=== PATIENT | male | born 1965 | race African-American/Black ===

== ENCOUNTER 2019-03-05 12:19 | Emergency (ER) | payer SELFPAY ==
--- NOTE | 2019-03-05 13:07 | ER Document Report ---
ED Medical Screen (RME) - General Chief Complaint: High Blood Pressure Stated Complaint: BLOOD PRESSURE ISSUES Time Seen by Provider: 03/05/19 12:55 Primary Care Provider: NATHAN THAKKAR MD [Primary Care Provider] - Follow up as needed Mode of Arrival: Ambulatory Information source: Patient Notes: 53-year-old male presented to ED for complaint of very high blood pressure. He states he has a history of high blood pressure but is not taking any medications for at least 2 years because he has not had insurance. He states the insurance and work got too expensive for him to afford. He states the last medication he knows that he took with lisinopril 20 mg daily and that was in 2015. TRAVEL OUTSIDE OF THE [place] IN LAST 30 DAYS: No - Related Data Allergies/Adverse Reactions: No Known Allergies Allergy (Verified 03/05/19 12:20) Past Medical History - Social History Chew tobacco use (# tins/day): No Frequency of alcohol use: None Drug Abuse: None - Past Medical History Cardiac Medical History: Reports: Hx Hypertension Renal/ Medical History: Denies: Hx Peritoneal Dialysis Physical Exam - Vital signs Vitals: Temp Pulse Resp BP Pulse Ox 98.8 F 91 18 185/124 H 98 03/05/19 12:21 03/05/19 12:21 03/05/19 12:21 03/05/19 12:21 03/05/19 12:21 Course - Vital Signs Vital signs: Temp Pulse Resp BP Pulse Ox 98.8 F 91 18 185/124 H 98 03/05/19 12:21 03/05/19 12:21 03/05/19 12:21 03/05/19 12:21 03/05/19 12:21 Doctor's Discharge - Discharge Referrals: NATHAN THAKKAR MD [Primary Care Provider] - Follow up as needed
[2019-03-05 13:31] LABS: ABSOLUTE EOSINOPHILS # (AUTO) 0.1 10^3/uL (0.0-0.6); ABSOLUTE LYMPHOCYTES (AUTO) 1.5 10^3/uL (0.5-4.7); ABSOLUTE MONOCYTES (AUTO) 0.8 10^3/uL (0.1-1.4); ABSOLUTE NEUT (AUTO) 7.2 10^3/uL (1.7-8.2); BASOPHILS % (AUTO) 0.3 % (0-2); EOSINOPHILS % (AUTO) 0.7 % (0-6); HEMATOCRIT 49.9 % (37.9-51.0); HEMOGLOBIN 16.3 g/dL (13.5-17.0); LYMPHOCYTES % (AUTO) 15.6 % (13-45); MEAN CORPUSCULAR HEMOGLOBIN 26.2 pg (27.0-33.4); MEAN CORPUSCULAR HGB CONC 32.6 g/dL (32.0-36.0); MEAN CORPUSCULAR VOLUME 80 fl (80-97); MONOCYTES % (AUTO) 8.4 % (3-13); PLATELET COUNT 258 10^3/uL (150-450); RED BLOOD COUNT 6.21 10^6/uL (4.35-5.55); RED CELL DISTRIBUTION WIDTH 14.3 % (11.5-14.0); TOTAL CELLS COUNTED % (AUTO) 100 %; WHITE BLOOD COUNT 9.6 10^3/uL (4.0-10.5)
[2019-03-05 13:48] LABS: APPEARANCE,URINE CLEAR; BILIRUBIN,URINE NEGATIVE (NEGATIVE); COLOR,URINE YELLOW; GLUCOSE, URINE NEGATIVE (NEGATIVE); KETONES,URINE NEGATIVE (NEGATIVE); LEUKOCYTE ESTERASE,URINE NEGATIVE (NEGATIVE); NITRITE,URINE NEGATIVE (NEGATIVE); PROTEIN,URINE NEGATIVE (NEGATIVE); URINE SPECIFIC GRAVITY 1.013; UROBILINOGEN,URINE NEGATIVE mg/dL (<2.0)
[2019-03-05 13:57] LABS: ALANINE AMINOTRANSFERASE 35 U/L (21-72); ALBUMIN 4.9 g/dL (3.5-5.0); ALKALINE PHOSPHATASE 93 U/L (38-126); ANION GAP 13 (5-19); ASPARTATE AMINO TRANSFERASE 28 U/L (17-59); BILIRUBIN,DIRECT 0.2 mg/dL (0.0-0.4); BILIRUBIN,TOTAL 0.5 mg/dL (0.2-1.3); BLOOD UREA NITROGEN 16 mg/dL (7-20); CALCIUM 10.3 mg/dL (8.4-10.2); CARBON DIOXIDE 32 mmol/L (22-30); CHLORIDE 97 mmol/L (98-107); GLUCOSE 95 mg/dL (75-110); POTASSIUM 3.8 mmol/L (3.6-5.0); SODIUM 141.7 mmol/L (137-145); TOTAL PROTEIN 7.9 g/dL (6.3-8.2)
[2019-03-05] MEDS ORDERED: AMLODIPINE BESYLATE 5 MG TABLET PO ONE (14:39)
--- NOTE | 2019-03-05 15:05 | RADIOLOGY REPORT (SQ) ---
EXAM DESCRIPTION: CT HEAD WITHOUT COMPLETED DATE/TIME: 03/05/2019 2:48 pm REASON FOR STUDY: HTN, headache COMPARISON: None. TECHNIQUE: Axial images acquired through the brain without intravenous contrast. Images reviewed wi th bone, brain and subdural windows. Additional sagittal and coronal reconstructions were generated. Images stored on PACS. All CT scanners at this facility use dose modulation, iterative reconstruction, and/or weight based d osing when appropriate to reduce radiation dose to as low as reasonably achievable (ALARA). [facility]: Dose Right [facility]: CareDose [facility]: Dose Right [facility]: Teradose 4D [facility]: Up My Game RADIATION DOSE: CT Rad equipment meets quality standard of care and radiation dose reduction techniq ues were employed. CTDIvol: 53.2 mGy. DLP: 1017 mGy-cm. mGy. LIMITATIONS: None. FINDINGS: VENTRICLES: Normal size and contour. CEREBRUM: No masses. No hemorrhage. No midline shift. No evidence for acute infarction. Normal gra y/white matter differentiation. No areas of low density in the white matter. CEREBELLUM: No masses. No hemorrhage. No alteration of density. No evidence for acute infarction. EXTRAAXIAL SPACES: No fluid collections. No masses. ORBITS AND GLOBE: No intra- or extraconal masses. Normal contour of globe without masses. CALVARIUM: No fracture. PARANASAL SINUSES: No fluid or mucosal thickening. SOFT TISSUES: No mass or hematoma. OTHER: No other significant finding. IMPRESSION: NORMAL BRAIN CT WITHOUT CONTRAST. EVIDENCE OF ACUTE STROKE: NO. COMMENT: Quality ID # [id number]: Final reports with documentation of one or more dose reduction techniques (e.g., Automated exposure control, adjustment of the mA and/or kV according to patient size, use of iterative reconstruction technique) TECHNICAL DOCUMENTATION: JOB ID: [id number] [employer]- All Rights Reserved Reading location - IP/workstation name: [email or web address]
--- NOTE | 2019-03-05 15:10 | ER Document Report ---
ED Blood Pressure Problem - General Chief Complaint: High Blood Pressure Stated Complaint: BLOOD PRESSURE ISSUES Time Seen by Provider: 03/05/19 12:55 Primary Care Provider: NATHAN THAKKAR MD [NO LOCAL MD] - Follow up as needed Mode of Arrival: Ambulatory Notes: Patient is a 53-year-old -[place] male who presents to the emergency department for hypertension. Patient states for the last couple of days he has had a pressure in his head. Also complaining of a generalized headache. Patient states he did have hypertension in the past and was on lisinopril. States he has not been able to take it since 2016 due to him currently being uninsured. Patient's denying any chest pain, shortness of breath, weakness, blurred vision, vomiting, fevers. Patient stated he took his blood pressure at home and it was 200 systolic which concerned him which is why presents to the emergency department. Past medical history: Hypertension Medications: Currently none Allergies none Surgical history none TRAVEL OUTSIDE OF THE [place] IN LAST 30 DAYS: No - Related Data Allergies/Adverse Reactions: No Known Allergies Allergy (Verified 03/05/19 12:20) Past Medical History - General Information source: Patient - Social History Smoking Status: Former Smoker Chew tobacco use (# tins/day): No Frequency of alcohol use: None Drug Abuse: None Family History: Reviewed & Not Pertinent Patient has suicidal ideation: No Patient has homicidal ideation: No - Past Medical History Cardiac Medical History: Reports: Hx Hypertension Renal/ Medical History: Denies: Hx Peritoneal Dialysis Review of Systems - Review of Systems Constitutional: See HPI. denies: Weakness EENT: See HPI Cardiovascular: See HPI Respiratory: No symptoms reported Gastrointestinal: No symptoms reported Genitourinary: No symptoms reported Male Genitourinary: No symptoms reported Musculoskeletal: No symptoms reported Skin: No symptoms reported Hematologic/Lymphatic: No symptoms reported Neurological/Psychological: See HPI Physical Exam - Vital signs Vitals: Temp Pulse Resp BP Pulse Ox 98.8 F 91 18 185/124 H 98 03/05/19 12:21 03/05/19 12:21 03/05/19 12:21 03/05/19 12:21 03/05/19 12:21 - Notes Notes: GENERAL: Alert, interacts well. No acute distress. HEAD: Normocephalic, atraumatic. EYES: Pupils equal, round, and reactive to light. Extraocular movements intact. ENT: Oral mucosa moist, tongue midline. NECK: Full range of motion. Supple. Trachea midline. No nuchal rigidity noted LUNGS: Clear to auscultation bilaterally, no wheezes, rales, or rhonchi. No respiratory distress. HEART: Regular rate and rhythm. No murmur ABDOMEN: Soft, non-tender. Non-distended. Bowel sounds present in all 4 quadrants. EXTREMITIES: Moves all 4 extremities spontaneously. No edema, normal radial and dorsalis pedis pulses bilaterally. No cyanosis. 5 out of 5 strength all 4 extremities. BACK: no cervical, thoracic, lumbar midline tenderness. No saddle anesthesia, normal distal neurovascular exam. NEUROLOGICAL: Alert and oriented x3. Normal speech. cranial nerves II through XII grossly intact PSYCH: Normal affect, normal mood. SKIN: Warm, dry, normal turgor. No rashes or lesions noted. Course - Re-evaluation Re-evalutation: EKG shows a sinus rhythm rate of 77, first-degree AV block. QTc 453, no ST segment elevations or depressions noted. 03/05/19 15:43 Laboratory 03/05/19 03/05/19 03/05/19 13:17 13:17 13:17 WBC 9.6 RBC 6.21 H Hgb 16.3 Hct 49.9 MCV 80 MCH 26.2 L MCHC 32.6 RDW 14.3 H Plt Count 258 Seg Neutrophils % 75.0 Lymphocytes % 15.6 Monocytes % 8.4 Eosinophils % 0.7 Basophils % 0.3 Absolute Neutrophils 7.2 Absolute Lymphocytes 1.5 Absolute Monocytes 0.8 Absolute Eosinophils 0.1 Absolute Basophils 0.0 Sodium 141.7 Potassium 3.8 Chloride 97 L Carbon Dioxide 32 H Anion Gap 13 BUN 16 Creatinine 1.25 Est GFR ( Amer) > 60 Est GFR (Non-Af Amer) > 60 Glucose 95 Calcium 10.3 H Total Bilirubin 0.5 Direct Bilirubin 0.2 Neonat Total Bilirubin Not Reportable Neonat Direct Bilirubin Not Reportable Neonat Indirect Bili Not Reportable AST 28 ALT 35 Alkaline Phosphatase 93 CK-MB (CK-2) 1.66 Troponin I Total Protein 7.9 Albumin 4.9 Urine Color Urine Appearance Urine pH Ur Specific Makanda Urine Protein Urine Glucose (UA) Urine Ketones Urine Blood Urine Nitrite Urine Bilirubin Urine Urobilinogen Ur Leukocyte Esterase Urine WBC (Auto) Urine RBC (Auto) Urine Mucus (Auto) Urine Ascorbic Acid 03/05/19 03/05/19 13:17 13:17 WBC RBC Hgb Hct MCV MCH MCHC RDW Plt Count Seg Neutrophils % Lymphocytes % Monocytes % Eosinophils % Basophils % Absolute Neutrophils Absolute Lymphocytes Absolute Monocytes Absolute Eosinophils Absolute Basophils Sodium Potassium Chloride Carbon Dioxide Anion Gap BUN Creatinine Est GFR ( Amer) Est GFR (Non-Af Amer) Glucose Calcium Total Bilirubin Direct Bilirubin Neonat Total Bilirubin Neonat Direct Bilirubin Neonat Indirect Bili AST ALT Alkaline Phosphatase CK-MB (CK-2) Troponin I 0.024 Total Protein Albumin Urine Color YELLOW Urine Appearance CLEAR Urine pH 6.0 Ur Specific Makanda 1.013 Urine Protein NEGATIVE Urine Glucose (UA) NEGATIVE Urine Ketones NEGATIVE Urine Blood SMALL H Urine Nitrite NEGATIVE Urine Bilirubin NEGATIVE Urine Urobilinogen NEGATIVE Ur Leukocyte Esterase NEGATIVE Urine WBC (Auto) 1 Urine RBC (Auto) 3 Urine Mucus (Auto) OCC Urine Ascorbic Acid NEGATIVE Head CT 03/05/19 13:40 IMPRESSION: NORMAL BRAIN CT WITHOUT CONTRAST. EVIDENCE OF ACUTE STROKE: NO. Discussed with patient use of amlodipine due to JNC 8 criteria. Patient voices understanding. States he will follow-up with [facility] or [facility] for medication refill. Discussed close return precautions. Patient stable for discharge. - Vital Signs Vital signs: Temp Pulse Resp BP Pulse Ox 98.8 F 91 18 186/106 H 98 03/05/19 12:21 03/05/19 12:21 03/05/19 12:21 03/05/19 12:59 03/05/19 12:21 - Laboratory Result Diagrams: 03/05/19 13:17 03/05/19 13:17 Laboratory results interpreted by me: 03/05/19 03/05/19 03/05/19 13:17 13:17 13:17 RBC 6.21 H MCH 26.2 L RDW 14.3 H Chloride 97 L Carbon Dioxide 32 H Calcium 10.3 H Urine Blood SMALL H Discharge - Discharge Clinical Impression: Hypertension Qualifiers: Hypertension type: unspecified Qualified Code(s): I10 - Essential (primary) hypertension Condition: Stable Disposition: HOME, SELF-CARE Instructions: Calcium Channel Blockers ([facility]), High Blood Pressure ([facility]) Additional Instructions: As we discussed you have been seen and treated in the emergency department for high blood pressure. All of your testing is coming back within normal limits. Her blood pressure is noted to be elevated at today's visit. As we discussed I am going to start you on a medication called Norvasc. Please make sure you take it daily for the next 30 days. Please also make sure they follow-up with [facility] or [facility] for continued care. You can also follow-up with the clinic you have heard of in [place] as needed. Please make sure you immediately return to the emergency room should you develop any chest pain, dizziness, blurred vision, vomiting, any other concerns. Prescriptions: Amlodipine Besylate [Norvasc 10 mg Tablet] 10 mg PO DAILY #30 tablet Forms: Elevated Blood Pressure, Return to Work Referrals: NAHTAN THAKKAR MD [NO LOCAL MD] - Follow up as needed
[2019-03-05 16:00] VITALS: BP 170/116
--- NOTE | 2019-03-05 18:39 | EKG REPORT ---
SEVERITY:- ABNORMAL ECG - SINUS RHYTHM FIRST DEGREE AV BLOCK LEFT ATRIAL ABNORMALITY PROBABLE LEFT VENTRICULAR HYPERTROPHY ANTERIOR Q WAVES, POSSIBLY DUE TO LVH : Confirmed by: Sonia Zabala MD 05-Mar-2019 18:38:35
== END 2019-03-05 16:16 | disposition home or self-care (01) ==
LOC: ER 12:19
DX: I10 Essential (primary) hypertension (principal); R51 Headache
CPT/HCPCS: 36415; 70450; 80053; 81001; 82553; 84484; 85025; 93005; 93010; 99284